=== PATIENT | male | born 1940 | race Caucasian/White ===

== ENCOUNTER 2020-01-01 08:14 | Outpatient (REF) | payer MEDICARE, OTHER, SELFPAY ==
[2020-01-01 11:17] LABS: Basophils Percent Auto 0.5 % (0-2); Eosinophils Absolute Auto 0.1 X10*3/uL (0.0-0.4); Eosinophils Percent Auto 1.4 % (0-4); Imm Gran Abs Auto 0.01 X10*3/uL (0.00-0.03); Imm Gran Pct Auto 0.1 % (0.0-0.4); Lymphocytes Absolute Auto 5.1 X10*3/uL (1.2-4.9); Lymphocytes Percent Auto 61.1 % (20-40); MANUAL DIFF FLAG SCAN; Mean Corpuscular HGB Conc 31.8 g/dl (31.0-36.0); Mean Corpuscular Hemoglobin 29.2 pg (27.0-33.0); Mean Corpuscular Volume 91.7 fL (80-98); Mean Platelet Volume 10.5 fL (9.4-12.4); Monocytes Absolute Auto 0.4 X10*3/uL (0.1-1.2); Monocytes Percent Auto 4.9 % (2-11); Neutrophils Absolute Auto 2.7 X10*3/uL (2.0-8.3); Platelet Count 142 X10*3/uL (160-400); SCAN SMEAR FLAG 1; White Blood Count 8.4 X10*3/uL (4.8-10.8)
[2020-01-01 11:36] LABS: Glucose Urine UA NEG (NEG); Leukocyte Esterase Urine NEG (NEG); Nitrite Urine NEG (NEG); PH 6.5 (5.0-8.0); Specific Gravity - Urine 1.015 (1.005-1.025); Urine Blood TRACE (NEG); Urine Ketones NEG (NEG); Urine Protein NEG (NEG-TRACE)
[2020-01-01 11:41] LABS: Estimated Average Glucose 114 mg/dL; Hemoglobin A1c % 5.6 %
[2020-01-01 11:57] LABS: SLIDE REVIEW VERIFIED
[2020-01-01 12:05] LABS: Appearance Urine CLEAR; Color Urine YELLOW
[2020-01-01 12:20] LABS: Alanine Aminotransferase 9 U/L (0-40); Albumin Level 4.1 g/dL (3.5-5.0); Alkaline Phosphatase 53 U/L (39-117); Anion Gap 11 (12-20); Aspartate Amino Transferase 14 U/L (5-37); Bilirubin Total 0.9 mg/dL (0.0-1.0); Blood Urea Nitrogen 22 mg/dL (9-16); Calcium 8.7 mg/dL (8.4-10.2); Carbon Dioxide 30 mmol/L (22-29); Chloride 102 mmol/L (96-108); Cholesterol 184 mg/dL; Estimated Glomerular Filt Rate > 60; Glucose Fasting 105 mg/dL (60-99); HDL Cholesterol 57 mg/dL; LDL Cholesterol Calculated 114 mg/dl; Potassium 4.4 mmol/l (3.3-5.1); Sodium 139 mmol/L (135-145); Total Protein 6.1 g/dL (6.5-8.0); Triglycerides 66 mg/dL
[2020-01-01 12:22] LABS: RBC Urine 0-2 /HPF (0); WBC Urine 0 /HPF (0-4)
== END 2020-01-01 08:15 | disposition home or self-care (01) ==
LOC: HO.HMGCLDS 08:14
PROVIDERS: PCP Internal Medicine; Visit Provider Internal Medicine
DX: I48.0 Paroxysmal atrial fibrillation (principal); I10 Essential (primary) hypertension; R73.03 Prediabetes
CPT/HCPCS: 36415; 80053; 80061; 81001; 81003; 83036; 84153; 85025

== ENCOUNTER 2020-12-11 06:55 | Outpatient (REF) | payer MEDICARE, OTHER, SELFPAY ==
[2020-12-11 11:20] LABS: MANUAL DIFF FLAG NO
[2020-12-11 11:27] LABS: Basophils Percent Auto 0.4 % (0-2); Eosinophils Absolute Auto 0.2 X10*3/uL (0.0-0.4); Eosinophils Percent Auto 2.9 % (0-4); Hematocrit 43.9 % (42-52); Hemoglobin 13.9 g/dl (14.0-18.0); Imm Gran Abs Auto 0.03 X10*3/uL (0.00-0.03); Imm Gran Pct Auto 0.4 % (0.0-0.4); Mean Corpuscular HGB Conc 31.7 g/dl (31.0-36.0); Mean Corpuscular Hemoglobin 28.5 pg (27.0-33.0); Mean Platelet Volume 10.8 fL (9.4-12.4); Monocytes Absolute Auto 0.5 X10*3/uL (0.1-1.2); Monocytes Percent Auto 6.8 % (2-11); Neutrophils Absolute Auto 2.1 X10*3/uL (2.0-8.3); Neutrophils Percent Auto 31.5 % (45-73); Platelet Count 129 X10*3/uL (160-400); Red Blood Count 4.88 X10*6/uL (4.60-5.80); Red Cell Distribution Width 13.8 % (11.0-16.0); White Blood Count 6.8 X10*3/uL (4.8-10.8)
[2020-12-11 11:47] LABS: Alanine Aminotransferase 19 U/L (0-40); Alkaline Phosphatase 60 U/L (39-117); Anion Gap 10 (12-20); Aspartate Amino Transferase 17 U/L (5-37); Bilirubin Total 1.2 mg/dL (0.0-1.0); Blood Urea Nitrogen 25 mg/dL (9-16); Carbon Dioxide 30 mmol/L (22-29); Chloride 106 mmol/L (96-108); Cholesterol 157 mg/dL; Estimated Glomerular Filt Rate 58; Glucose Fasting 102 mg/dL (60-99); HDL Cholesterol 46 mg/dL; LDL Cholesterol Calculated 101 mg/dl; Sodium 142 mmol/L (135-145); Triglycerides 54 mg/dL
[2020-12-11 12:08] LABS: Prostate Specific Antigen Scr 1.08 ng/mL (<0.05-4.0)
== END 2020-12-11 06:56 | disposition home or self-care (01) ==
LOC: HO.HMGCLDS 06:55
PROVIDERS: PCP Internal Medicine; Visit Provider Internal Medicine
DX: I48.91 Unspecified atrial fibrillation (principal); N40.0 Benign prostatic hyperplasia without lower urinary tract symptoms; E78.00 Pure hypercholesterolemia, unspecified; Z86.73 Personal history of transient ischemic attack (TIA), and cerebral infarction without residual deficits; Z12.5 Encounter for screening for malignant neoplasm of prostate
CPT/HCPCS: 36415; 80053; 80061; 84153; 85025

== ENCOUNTER 2021-12-09 08:23 | Outpatient (REF) | payer MEDICARE, OTHER, SELFPAY ==
[2021-12-09 11:22] LABS: Appearance Urine Clear; Color Urine Yellow; Glucose Urine UA Negative (Negative); Leukocyte Esterase Urine Negative (Negative); Nitrite Urine Negative (Negative); PH 6.5 (5.0-9.0); Urine Blood Negative (Negative); Urine Ketones Negative (Negative); Urine Protein Negative (Neg-Trace)
[2021-12-09 11:22] LABS: MANUAL DIFF FLAG NO
[2021-12-09 11:43] LABS: Basophils Percent Auto 0.6 % (0-2); Eosinophils Absolute Auto 0.2 X10*3/uL (0.0-0.4); Eosinophils Percent Auto 2.9 % (0-4); Estimated Average Glucose 114 mg/dL; Hematocrit 41.9 % (42.0-52.0); Hemoglobin 13.6 g/dl (14.0-18.0); Hemoglobin A1c % 5.6 %; Imm Gran Abs Auto 0.01 X10*3/uL (0.00-0.03); Imm Gran Pct Auto 0.1 % (0.0-0.4); Lymphocytes Absolute Auto 3.9 X10*3/uL (1.2-4.9); Lymphocytes Percent Auto 55.2 % (20-40); Mean Corpuscular HGB Conc 32.5 g/dl (31.0-36.0); Mean Corpuscular Hemoglobin 29.2 pg (27.0-33.0); Mean Corpuscular Volume 90.1 fL (80.0-98.0); Mean Platelet Volume 10.3 fL (9.4-12.4); Monocytes Absolute Auto 0.5 X10*3/uL (0.1-1.2); Monocytes Percent Auto 7.6 % (2-11); Neutrophils Absolute Auto 2.4 x10*3/uL (2.0-8.3); Neutrophils Percent Auto 33.6 % (45-73); Platelet Count 118 X10*3/uL (160-400); Red Blood Count 4.65 X10*6/uL (4.60-5.80); Red Cell Distribution Width 14.1 % (11.0-16.0)
[2021-12-09 11:49] LABS: Creatinine Urine 49.68 mg/dL; Microalbum/Creatinine Ratio Ur 30.1 ug/mg cr
[2021-12-09 12:12] LABS: Alanine Aminotransferase 14 U/L (0-40); Albumin Level 4.1 g/dL (3.5-5.0); Alkaline Phosphatase 46 U/L (39-117); Anion Gap 11 (12-20); Aspartate Amino Transferase 14 U/L (5-37); Bilirubin Total 0.9 mg/dL (0.0-1.0); Blood Urea Nitrogen 18 mg/dL (9-16); Calcium 9.3 mg/dL (8.4-10.2); Carbon Dioxide 30 mmol/L (22-29); Chloride 102 mmol/L (96-108); Cholesterol 166 mg/dL; Estimated Glomerular Filt Rate > 60; Glucose Fasting 108 mg/dL (60-99); HDL Cholesterol 60 mg/dL; LDL Cholesterol Calculated 95 mg/dl; Sodium 139 mmol/L (135-145); Triglycerides 55 mg/dL
[2021-12-09 12:35] LABS: Prostate Specific Antigen Scr 0.84 ng/mL (<0.05-4.0)
== END 2021-12-09 08:24 | disposition home or self-care (01) ==
LOC: HO.HMGCLDS 08:23
PROVIDERS: PCP Internal Medicine; Visit Provider Internal Medicine
DX: N40.0 Benign prostatic hyperplasia without lower urinary tract symptoms (principal); I48.91 Unspecified atrial fibrillation; R73.03 Prediabetes; C91.10 Chronic lymphocytic leukemia of B-cell type not having achieved remission; Z12.5 Encounter for screening for malignant neoplasm of prostate
CPT/HCPCS: 36415; 80053; 80061; 81003; 82043; 83036; 84153; 85025

== ENCOUNTER 2022-12-07 07:34 | Outpatient (REF) | payer MEDICARE, OTHER, SELFPAY ==
[2022-12-07 11:28] LABS: Appearance Urine Clear; Color Urine Yellow; Glucose Urine UA Negative (Negative); Leukocyte Esterase Urine Trace (Negative); Nitrite Urine Negative (Negative); UMIC TRIGGER UA YES; Urine Blood Negative (Negative); Urine Ketones Negative (Negative); Urine Protein Trace mg/dL (Neg-Trace)
[2022-12-07 11:33] LABS: MANUAL DIFF FLAG NO
[2022-12-07 11:36] LABS: Bacteria Urine None Seen (None Seen); Hyaline Casts Urine 0-2 /LPF (0-2); RBC Urine 0-2 /HPF (0-2); Squamous Epithelial Cell Urine 0-2 /HPF (0-2); WBC Urine 0-5 /HPF (0-5)
[2022-12-07 11:54] LABS: Basophils Percent Auto 0.4 % (0-2); Eosinophils Absolute Auto 0.2 X10*3/uL (0.0-0.4); Hematocrit 43.6 % (42.0-52.0); Imm Gran Abs Auto 0.01 X10*3/uL (0.00-0.03); Imm Gran Pct Auto 0.1 % (0.0-0.4); Lymphocytes Absolute Auto 4.3 X10*3/uL (1.2-4.9); Lymphocytes Percent Auto 54.5 % (20-40); Mean Corpuscular HGB Conc 32.1 g/dl (31.0-36.0); Mean Corpuscular Hemoglobin 29.5 pg (27.0-33.0); Monocytes Absolute Auto 0.4 X10*3/uL (0.1-1.2); Monocytes Percent Auto 5.2 % (2-11); Neutrophils Percent Auto 37.8 % (45-73); Platelet Count 128 X10*3/uL (160-400); Red Blood Count 4.74 X10*6/uL (4.60-5.80); Red Cell Distribution Width 13.6 % (11.0-16.0); White Blood Count 7.9 X10*3/uL (4.8-10.8)
[2022-12-07 12:19] LABS: Prostate Specific Antigen Scr 1.07 ng/mL (<0.05-4.0)
[2022-12-07 12:47] LABS: Alanine Aminotransferase 12 U/L (0-40); Albumin Level 3.9 g/dL (3.5-5.0); Alkaline Phosphatase 46 U/L (39-117); Anion Gap 10 (12-20); Aspartate Amino Transferase 15 U/L (5-37); Bilirubin Total 1.2 mg/dL (0.0-1.0); Blood Urea Nitrogen 18 mg/dL (9-16); Calcium 8.9 mg/dL (8.4-10.2); Carbon Dioxide 28 mmol/L (22-29); Chloride 105 mmol/L (96-108); Cholesterol 151 mg/dL (<200); Estimated Glomerular Filt Rate 57; Glucose Fasting 104 mg/dL (60-99); HDL Cholesterol 58 mg/dL (>40); Iron 71 mcg/dL (45-160); LDL Cholesterol Calculated 81 mg/dL (<100); Percent Iron Saturation 25 % (15-50); Potassium 4.2 mmol/L (3.3-5.1); Sodium 139 mmol/L (135-145); Total Iron Binding Capacity 283 mcg/dL (228-428); Total Protein 6.2 g/dL (6.5-8.0); Triglycerides 62 mg/dL (<150); Unsaturated Iron Binding 212 ug/dL
== END 2022-12-07 07:35 | disposition home or self-care (01) ==
LOC: HO.HMGCLDS 07:34
PROVIDERS: PCP Internal Medicine; Visit Provider Internal Medicine
DX: I48.0 Paroxysmal atrial fibrillation (principal); C91.10 Chronic lymphocytic leukemia of B-cell type not having achieved remission; N40.0 Benign prostatic hyperplasia without lower urinary tract symptoms; D64.9 Anemia, unspecified; Z12.5 Encounter for screening for malignant neoplasm of prostate
CPT/HCPCS: 36415; 80053; 80061; 81001; 83540; 84153; 85025

== ENCOUNTER 2023-12-08 06:49 | Outpatient (REF) | payer MEDICARE, OTHER, SELFPAY ==
[2023-12-08 09:28] LABS: B Type Natriuretic Peptide 212 pg/mL (<100)
[2023-12-08 10:05] LABS: MANUAL DIFF FLAG NO
[2023-12-08 10:09] LABS: Basophils Percent Auto 0.5 % (0-2); Eosinophils Absolute Auto 0.1 X10*3/uL (0.0-0.4); Eosinophils Percent Auto 1.8 % (0-4); Hematocrit 43.3 % (42.0-52.0); Hemoglobin 13.9 g/dl (14.0-18.0); Imm Gran Abs Auto 0.02 X10*3/uL (0.00-0.03); Imm Gran Pct Auto 0.3 % (0.0-0.4); Lymphocytes Absolute Auto 3.8 X10*3/uL (1.2-4.9); Lymphocytes Percent Auto 58.2 % (20-40); Mean Corpuscular HGB Conc 32.1 g/dl (31.0-36.0); Mean Corpuscular Hemoglobin 28.4 pg (27.0-33.0); Mean Corpuscular Volume 88.4 fL (80.0-98.0); Mean Platelet Volume 10.8 fL (9.4-12.4); Monocytes Absolute Auto 0.4 X10*3/uL (0.1-1.2); Monocytes Percent Auto 5.6 % (2-11); Neutrophils Absolute Auto 2.2 x10*3/uL (2.0-8.3); Neutrophils Percent Auto 33.6 % (45-73); Platelet Count 119 X10*3/uL (160-400); Red Cell Distribution Width 15.1 % (11.0-16.0); White Blood Count 6.6 X10*3/uL (4.8-10.8)
[2023-12-08 10:25] LABS: Estimated Average Glucose 120 mg/dL; Hemoglobin A1C 141.9395 umol/L; Hemoglobin A1c % 5.8 % (<6.0); Total Hemoglobin (HGBA1C) 3584.5705 umol/L
[2023-12-08 10:39] LABS: Prostate Specific Antigen 0.96 ng/mL (<0.05-4.0)
[2023-12-08 10:42] LABS: Alanine Aminotransferase 12 U/L (0-40); Alkaline Phosphatase 52 U/L (39-117); Anion Gap 12 (12-20); Aspartate Amino Transferase 15 U/L (5-37); Bilirubin Total 1.5 mg/dL (0.0-1.0); Blood Urea Nitrogen 20 mg/dL (9-16); Calcium 9.2 mg/dL (8.4-10.2); Carbon Dioxide 28 mmol/L (22-29); Chloride 107 mmol/L (96-108); Cholesterol 162 mg/dL (<200); Estimated Glomerular Filt Rate > 60; Glucose Fasting 101 mg/dL (60-99); HDL Cholesterol 54 mg/dL (>40); LDL Cholesterol Calculated 98 mg/dL (<100); Magnesium 2.1 mg/dL (1.6-2.6); Sodium 143 mmol/L (135-145); Total Protein 6.3 g/dL (6.5-8.0); Triglycerides 53 mg/dL (<150)
[2023-12-08 10:45] LABS: Free T4 (Free Thyroxine) 0.96 ng/dL (0.71-1.85); Thyroid Stimulating Hormone 0.77 uIU/mL (0.32-4.0)
== END 2023-12-08 06:50 | disposition home or self-care (01) ==
LOC: HO.HMGCLDS 06:49
PROVIDERS: PCP Internal Medicine; Visit Provider Internal Medicine
DX: I48.91 Unspecified atrial fibrillation (principal); I10 Essential (primary) hypertension; N40.0 Benign prostatic hyperplasia without lower urinary tract symptoms; R73.03 Prediabetes; C91.10 Chronic lymphocytic leukemia of B-cell type not having achieved remission; Z12.5 Encounter for screening for malignant neoplasm of prostate
CPT/HCPCS: 36415; 80053; 80061; 83036; 83735; 83880; 84153; 84439; 84443; 85025

== ENCOUNTER 2024-08-30 10:08 | Outpatient (AMB) | payer MEDICARE, OTHER, SELFPAY ==
--- NOTE | 2024-08-30 10:23 | A.OFFPC_ITS ---
Vital Signs 08/30/24 10:28 Height 6 ft 1 in Weight 182 lb BMI 24.0 BP 138/80 Blood Pressure Location Lt brachial Position Sitting Pulse 64 Pulse Source Pulse Oximeter Temp 97.5 F Temp Source Axillary Pulse Oximetry (%) 94 Oxygen Delivery Method Room Air Intake Visit Reasons: medication refill Timers Inspector Required: No Accompanied by: Self / Same As Patient Allergies penicillin V Allergy (Unknown, Verified 09/12/24 08:57) Unknown Penicillins (PENICILLINS) Allergy (Unknown, Verified 09/12/24 08:57) RASH Sulfa (Sulfonamide Antibiotics) Allergy (Unknown, Verified 09/12/24 08:57) Unknown Medication List - Last Reconciled 09/12/24 by Lasha Penn MD apixaban (Eliquis) 5 mg PO BID losartan 50 mg PO DAILY tamsulosin 0.4 mg PO BEDTIME Tobacco use date assessed: 08/30/24 Fall risk assessment: No Falls in past year Last assessed Fall Risk: 08/30/24 Dental Screening Dental Screen Date: 08/30/24 Did you have a dental visit in the last 12 months?: Yes Did you have a dental problem in the last 6 months where you did not have access to dental care?: No HPI medication refill HPI Details 84 yr old male presents to discuss his c hronic medical issues. Requests refill on a few meds. Requests blood work. [facility] Medical History (Updated 08/30/24 @ 10:50 by Lasha Penn MD) Essential hypertension Family History Mother No problems noted. Father No problems noted. Social History Housing: Condominium Patient Tobacco Use Status: Former Tobacco user e-Cigarette/Vaping Use: Former Use service: No Current occupational status: retired Cognitive needs: No Hearing needs: No Vision needs: Yes (rx glasses) Questionnaire PHQ-9 Over the last 2 weeks, how often have you been bothered by any of the following problems? 1. Little interest or pleasure in doing things: not at all 2. Feeling down, depressed, or hopeless: not at all 3. Trouble falling or staying asleep, or sleeping too much: not at all 4. Feeling tired or having little energy: not at all 5. Poor appetite or overeating: not at all 6. Feeling bad about yourself - or that you are a failure or have let yourself or your family down: not at all 7. Trouble concentrating on things, such as reading the newspaper or watching television: not at all 8. Moving or speaking so slowly that other people could have noticed. Or the opposite - being so fidgety or restless that you have been moving around a lot more than usual: not at all 9. Thoughts that you would be better off or of hurting yourself in some way: not at all Total score: 0 Depression Screening Interpretation: Negative Depression Screening Done: Yes Source: Developed by Drs. Pk Fernando, Rossy Guido, Cuong Jaeger and colleagues, with an educational scar from [employer] ([employer] Thrive Questionnaire Date Thrive assessed: 08/30/24 I am a: Patient Within the past 12 months, did the food you bought not last and you didn't have the money to get more?: Never true Within the past 12 months, did you worry whether your food would run out before you got money to buy more?: Never true Do you have trouble paying for medicines?: No Do you have trouble getting transportation to medical appointments?: No Do you have trouble paying your heating and electricity bill?: No Do you have trouble taking care of your child, family member or friend?: No Do you have trouble with day-to-day activities such as bathing, preparing meals, shopping, managing finances, etc.?: No Are you currently unemployed and looking for a job?: No Are you interested in more education?: No Currently or been in a relationship where the following occur: No concerns reported THRIVE Score: 0 AUDIT C Alcohol Use Questionnaire (AUDIT-C) 1. How often do you have a drink containing alcohol?: Never 3. How often do you have six or more drinks on one occasion?: Never Total Score: 0 SHERON-7 AMB Questionnaire SHERON-7 Date SHERON - 7 assessed: 08/30/24 Feeling nervous, anxious, or on edge: 0 = Not at all Not being able to stop or control worryin = Not at all Worrying too much about different things: 0 = Not at all Trouble relaxin = Not at all Being so restless that it is hard to sit still: 0 = Not at all Becoming easily annoyed or irritable: 0 = Not at all Feeling afraid as if something awful might happen: 0 = Not at all Total SHERON-7 score (0-4 normal; 5-9 mild; 10-14 moderate; 15-21 severe): 0 Source: Developed by Drs. Pk Fernando, Rossy Guido, Cuong Jaeger and colleagues, with an educational scar from [employer] ([employer] Physical exam (Primary Care) Vital Signs: Last Vital Signs Temp 97.5 F 08/30/24 10:28 Pulse 64 08/30/24 10:28 BP 138/80 08/30/24 10:28 Pulse Ox 94 08/30/24 10:28 Oxygen Delivery Method Room Air 08/30/24 10:28 Care Plan Goal for BP management: BP in range BMI result Body Mass Index 24.0 Tobacco/Smoking Status: Tobacco use Status Tobacco use date assessed 08/30/24 08/30/24 10:25 Patient Tobacco Use Status Former Tobacco user 08/30/24 10:35 e-Cigarette/Vaping Use Former Use 08/30/24 10:35 PHQ-9: PHQ-9 Score PHQ-9: Total score 0 08/30/24 10:25 Depression Screening Interpretation: Negative Thrive Assessment: Date of Thrive Assessment Date Thrive assessed 08/30/24 08/30/24 10:25 Currently or been in a relationship where the following occur: No concerns reported Const General: cooperative and healthy appearing Nutritional Appearance: well nourished Orientation/consciousness: patient oriented x3 Limitations: no limitations HENMT Head: Yes normal to inspection Eyes General: appearance normal, both eyes and all related structures Neck Neck: Yes normal visual inspection Chest Chest palpation & inspection: normal palpation of entire chest wall Resp Effort & Inspection: normal respiratory effort Neuro General: patient oriented x3 Coding Level of Care Code New Pt Level 4 (50048) Complex EM visit Add On G2211 Diagnoses Essential hypertension I10 Assessment & Plan Assessment & Plan (1) Essential hypertension: Code(s): I10 - Essential (primary) hypertension Category: Medical Plan: BP is in range continue current meds. BW ordered, will call with results Orders: Orders Liver Panel 11/06/24 I10 - Essential (primary) hypertension Complete Blood Count no Diff 11/06/24 I10 - Essential (primary) hypertension Basic Metabolic Panel 11/06/24 I10 - Essential (primary) hypertension Lipid Panel 11/06/24 I10 - Essential (primary) hypertension Prostate Specific Antigen Scr 11/06/24 I10 - Essential (primary) hypertension UA and rflx microscopic 11/06/24 I10 - Essential (primary) hypertension Medications: New apixaban (Eliquis) 5 mg PO BID 180 tabs 1RF tamsulosin 0.4 mg PO BEDTIME 90 caps 1RF losartan 50 mg PO DAILY 90 tabs 1RF
[2024-08-30 10:28] VITALS: BP 138/80; PULSE 64; TEMP 36.4; O2SAT 94; BMI 24.0
--- OUTSIDE RECORDS SUMMARY | 2024-08-30 11:40 | XMS_ITS | Patient Health Record ---
Author Organization [facility] Address [address] [place] [address] Care Team Providers Care Preparation Supervisor Freezing Name Role Phone Delvin Rendon MD Primary Care Provider UnavailDuane Mullen Jr Unavailable Allergies Allergen (clinical drug ingredient) Drug/Non Drug Allergy documented on EMR Reaction Allergy Type Onset Date Status Substance with sulfonamide structure and antibacterial mechanism of action (substance) Sulfa Antibiotics Unknown Drug Allergy Active Penicillin Unknown Drug Allergy Active Reason For Referral No Information Medications Medication SIG (Take, Route, Fr equency, Duration) Notes Start Date End Date Status Eliquis Active Metoprolol Succinate Active Tamsulosin HCl Activ e Aspirin 81 MG 1 tablet Orally Once a day Active Immunizations Vaccine Route Administration Date Status Comme nts Flu vaccine no Preserv 3 and > Unknown 11/22/2013 Admin istered Influenza Unknown 11/13/2020 Administered Problems Problem Type SNOMED Code ICD Code Onset Dates Problem Status W/U Status Risk Notes Problem 442168311 Colon cancer screening (V76.51) Active confirmed Problem 316195337 retirement current use of aspirin (V58.66) Active confirmed Problem 493166846 Gas bloat syndrome (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 [phone] [id number] MELARANEVIN BAPTISTE Self - patient is the insured Medical (General) History Medical History History ICD Code hypertension BPH chronic lymphocytic leukemia Atrial fibrillation, permanent, status p ost cardioversion and ablation. 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
== END 2024-08-30 10:50 | disposition home or self-care (01) ==
LOC: HO.HMCHD 10:08
PROVIDERS: PCP Internal Medicine; Visit Provider Internal Medicine
DX: I10 Essential (primary) hypertension (principal)

== ENCOUNTER → 2024-08-30 10:08 | Outpatient (BNVA) | payer MEDICARE, OTHER, SELFPAY | PROVIDERS: PCP Internal Medicine; Visit Provider Internal Medicine | DX: I10 Essential (primary) hypertension (principal); Z79.899 Other long term (current) drug therapy; Z87.891 Personal history of nicotine dependence | CPT/HCPCS: 99202 ==

== ENCOUNTER 2024-11-08 06:53 | Outpatient (REF) | payer MEDICARE, OTHER, SELFPAY ==
--- OUTSIDE RECORDS SUMMARY | 2019-04-14 08:00 | XMS_ITS | Continuity of Care Document ---
Author Organization [facility] Address [address] [place] [address] Phone Care Team Providers Care Veterans Service Representative Name Role Phone Provider, Referral Unavailable Unavailable Allergies, Adverse Reactions, Alerts Substance Reaction Status Criticality Sulfa (Sulfonamide Antibiotics) Active No Information Penicillins Active No Information Medications Medication Instructions Dosage Effective Dates (start - stop) Status Comments benazepril 5 mg tablet take 0.5 (2.5MG) by Oral route every day 2.5 MG - Active Procedures Procedure Date Therap 1/> Areas/15 Min; Exerc Therap 1/> Area/15 Min; Balnc/ 20 Man Ther Tech-1/> Regions-ea 1 20 Electrical Stimulation Therap 1/> Areas/15 Min; Exerc 20 Man Ther Tech-1/> Regions-ea 1 20 Electrical Stimulation Therap 1/> Areas/15 Min; Exerc 20 Therap 1/> Area/15 Min; Balnc/ 20 Man Ther Tech-1/> Regions-ea 1 20 Electrical Stimulation Therap 1/> Areas/15 Min; Exerc 20 Therap 1/> Area/15 Min; Balnc 20 Man Ther Tech-1/> Regions-ea 1 20 Electrical Stimulation Therap 1/> Areas/15 Min; Exerc Therap 1/> Area/15 Min; Balnc/ Man Ther Tech-1/> Regions-ea 1 20 Electrical Stimulation Therap 1/> Areas/15 Min; Exerc Therap 1/> Area/15 Min; Balnc/ Man Ther Tech-1/> Regions-ea 1 20 Electrical Stimulation PT EVAL LOW COMPLEX 20 MIN Therap 1/> Areas/15 Min; Exerc Man Ther Tech-1/> Regions-ea 1 20 Applic Modal 1/> Areas; Elec S Arthrocentesis/aspir/inj; Gemma 15 Arthrocentesis/aspir/inj; Inte 15 Offic/outpt E&m Estab Low-mod 5 Rad Exam Shoulder; Complt Mini 15 Methylprednisolone Acetate-40 5 Inj; 1/mx Trig Point 1/two Mus 14 Betamethasone Acetate-na Phos 4 Offic/outpt E&m Estab Low-mod 4 Applic Modal 1/> Areas; Tractn 14 Man Ther Tech-1/> Regions-ea 1 14 Applic Modal 1/> Areas; Ultras 14 Applic Modal 1/> Areas; Tractn 14 Man Ther Tech-1/> Regions-ea 1 14 Man Ther Tech-1/> Regions-ea 1 14 Man Ther Tech-1/> Regions-ea 1 14 Applic Modal 1/> Areas; Ultras 14 Phys Therap Eval Man Ther Tech-1/> Regions-ea 1 14 Mobility current status Mobility goal status Offic/outpt E&m Estab Mod-hi 2 14 Mri Spinal Wo Then W/contrast; 14 Carloz-base MR contrast NOS,1ml Prohance Ja Rad Exam Spine Lumbosacral; W/ 14 Offic/outpt E&m New Mod-hi 45 4 Pt visit doc using [facility] cer Some prescrib handwritten or OFFICE/OUTPATIENT VISIT, EST Mri Spinal Canal Thorac; Wo Co 09 Pt visit doc using [facility] cer Prescrip not gen at encounte Offic/outpt E&m Estab Low-mod 9 Pt visit doc using [facility] cer Prescription by E-Prescrib s Offic/outpt E&m New Mod Sever 9 Rad Exam Chest 2 Views Front & 09 Rad Exam Ribs Unilat; W/pa Varsha 09 Advance Directives Directive Yes / No Effective Date File Name No Information Encounters Encounter Description Practice Location Reason(s) For Visit Diagnoses Date Provider Providers Copied on Encounter [facility], [address] [place] [address], [id number], tel:[phone] No Information 0 0 Provider Referral. [address], [address], [place]. tel:[phone] [facility], [address] [place] [address], [id number], [place] tel:[phone] [facility] No Information 0 Stein PT Hillary. [address] [place] [address], [id number] , [place]. tel:[phone] Referring Provider: Stacey HORN, [address] [place], [address]. tel:[phone] [facility], [address] [place] [address], [id number], tel:[phone] [facility] No Information 0 Stein PT Hillary. [address] [place] [address], [id number] , [place]. tel:[phone] Referring Provider: Stacey HORN, [address], [place], [address]. tel:[phone] [facility], [address], [place], [place], [id number], [place] tel:[phone] [facility] No Information 0 Stein PT Hillary. [address], [place], [place], [id number] , [place]. tel:[phone] Referring Provider: Stacey HORN, [address], [place], [address]. tel:[phone] [facility], [address], [place], [place], [id number], [place] tel:[phone] [facility] No Information 0 Stein PT Hillary. [address], [place], [place], [id number] , [place]. tel:[phone] Referring Provider: Stacey HORN, [address], [place], [address]. tel:[phone] [facility], [address], [place], [place], [id number], [place] tel:[phone] [facility] No Information 0 Stein PT Hillary. [address], [place], [place], [id number] , [place]. tel:[phone] Referring Provider: Stacey HORN, [address], [place], [address]. tel:[phone] [facility], [address], [place], [place], [id number], [place] tel:[phone] [facility] No Information 0 Stein PT Hillary. [address], [place], [place], [id number] , [place]. tel:[phone] Referring Provider: Stacey HORN, [address], [place], [address]. tel:[phone] [facility], [address], [place], [place], [id number], [place] tel:[phone] [facility] No Information 0 Stein PT Hillary. [address] [facility], [address], [place], [place], [id number] , [place]. [phone] Referring Provider: Stacey HORN, [address], [place], [address]. tel:[phone] Offic/outpt E&m Estab Low-mod [facility], [address], [place], [place], [id number], [place] tel:[phone] [address] [place] [address] left shoulder pain (chief complaint) OVERWEIGHTHyp ertension, BenignShoulde r pain, leftOsteoarth ritis, shoulderPain in joint, upper arm 5 Carin Kirk. [address] [facility], [facility] [address], [place], [id number] , [place]. [phone] Referring Provider: Reagan Grimm, [address] [facility] [address], [place], [address] . tel:[phone] Offic/outpt E&m Estab Low-mod [facility], [address], [place], [place], [id number], [place] tel:[phone] [address] [place] [address] [facility] lumbar spine pain (chief complaint) LumbagoLumbag oSpinal enthesopathyL umbagoSpinal enthesopathyL umbar radiculopathy 4 Perry Cruz. [address] [facility], [facility] [address], [place], [id number] , [place]. tel:[phone] Referring Provider: Anthony Dawn, [address] [facility] [address], [place], [address] . tel:[phone] [facility], [address], [place], [place], [id number], tel:[phone] [facility] No Information 4 Dawkins Mayank. [address], [place], [place], [id number] , . tel: [phone] Referring Provider: Víctor Grimm, [address], [place], [address] . tel:[phone] [facility], [address] [facility], [place], [place], [id number], tel:[phone] [facility] No Information 4 Juancho Talley. [address] [facility] [address], [place], [place], [id number] , . tel: [phone] Referring Provider: Víctor Grimm, [address], [place], [address] . tel:[phone] [facility], [address] [facility], [place], [id number], tel:[phone] [facility] No Information 4 Juancho Tlaley. [address] [facility] [address], [place], [place], [id number] , . tel: [phone] Referring Provider: Víctor Grimm, [address], [place], [address] . tel:[phone] [facility], [address], [place], [place], [id number], tel:[phone] [facility] No Information 4 Juancho Talley. [address], [place], [place], [id number] , . tel: [phone] Referring Provider: Víctor Grimm, [address], [place], [address] . tel:[phone] [facility], [address] [address], [place], [id number], tel:[phone] [facility] DDD (degenerative disc disease), lumbosacralDi sc displacement, lumbarLumbago DDD (degenerative disc disease), lumbosacralDi sc displacement, lumbarLumbago DDD (degenerative disc disease), lumbosacralDi sc displacement, lumbarLumbago 4 Juancho Talley. [address], [place], [id number] , [place]. tel:[phone] Referring Provider: Víctor Grimm, [address], [place], [address] . tel:[phone] Offic/outpt E&m [facility] Mod-hi 2 [facility], [address] [address], [place], [place], [id number], tel:[phone] [facility] Sacral lesionDJD (degenerative joint disease), lumbarHNP (herniated nucleus pulposus), lumbar 4 Keith Renee. [address], [place], [place], [id number] , [place]. tel:[phone] Referring Provider: Víctor Grimm, [address], [place], [address] . tel:[phone] [facility], [address] [address], [place], [id number], tel:[phone] [facility] No Information 4 Keith Renee. [address], [place], [id number] , [place]. tel:[phone] Referring Provider: Víctor Grimm, [address], [place], [address] . tel:[phone] Offic/outpt E&m New Mod-hi 45 [facility], [address] [address], [place], [id number], [place] tel:[phone] [facility] DJD (degenerative joint disease), lumbarDJD (degenerative joint disease), lumbarLumbago 4 Keith Renee. [address], [facility] [address], [place], [id number] , [place]. tel:[phone] Referring Provider: Víctor Grimm, [address] [facility] [address], [place], [address] . tel:[phone] OFFICE/OUTPA TIENT VISIT, [facility], [address] [address], [place], [place], [id number], [place] tel:[phone] [facility] right rib pain (chief complaint) THORACIC DISC DISPLACMNT Mar-3 0-200 9 Carin Kirk. [address] [facility], [address], [id number] , [place]. tel:[phone] Referring Provider: Reagan Grimm, [address] [facility] [address] [facility], [place], [address] . tel:[phone] [facility] SANDY HORN, [address] [address], [place], [place], [id number], [place] tel:[phone] [facility] No Information Mar-2 3-200 9 Carin Kirk. [address] [facility], [address] [address], [place], [place], [id number] , [place]. tel:[phone] Referring Provider: Reagan Grimm, [address], [place], [address] . tel:[phone] Offic/outpt E&m Estab Low-mod [facility], [address] [facility] [address], [place], [id number], [place] tel:[phone] [facility] right rib pain (chief complaint) THORACIC DISC DISPLACMNT Mar-2 3-200 9 Sarain Reagan. [address] [facility], [facility] [address], [place], [place], [id number] , [place]. tel:[phone] Referring Provider: Reagan Grimm, [address] [facility], [place], [address] . tel:[phone] Offic/outpt E&m New Mod Sever [facility], [address], [place], [id number], [place] tel:[phone] [facility] right rib and sternal pain (chief complaint) THORACIC DISC DISPLACMNT 200 9 Carin Kirk. [address] [facility], [address], [place], [address] , [place]. tel:[phone] Referring Provider: Reagan Grimm, [address] [facility], [place], [address] . tel:[phone] Family History Family Member Type Diagnosis Age At Onset Problem (finding) Family history of Heart disease Problem (finding) Family history of malignant neoplasm of lung Problem (finding) Family history of malignant neoplasm of male breast Payers Payer name Insurance type Covered alliance party ID Authoriza tion(s) Medicare Part B [id number] [facility] [id number] Social History Type Description Quantity Date Captured Comments Sex Male Smoking Status No Information Chief Complaint And Reason For Visit No Information Reason For Referral Reason For Referral No Information Plan Of Treatment Date Type Action Status Goal Lifestyle education regardin g diet completed Referral Ordered: Rad Exam Shoulder; Complt Mini LT ordered History Of Present Illness Encounter Date Complaint History Of Prese nt Illness left shoulder pain Patient is he re for a new problem of left shoulder pain. Onset: on 03/21/2014. Severity level is 8. No injury. Patient is right handed. Patient denies any radicular pain. No numbness or tingling. Patient has not had any xrays or MRI. No previous injuries or surgeries. lumbar spine pain (comments) He presents to the office today to try a trigger point injection. He states the majority of his localized pain is a long his iliac crest on the left side. He does have some left leg radicular symptoms. lumbar spine pain The problem is worsening. It occurs persistently. Location of pain is lower back. Pain is radiated to the left leg. The patient describes the pain as an ache and sharp. Symptoms are aggravated by daily activities. Symptoms are relieved by rest. He states his back pain began about 51 years ago when he was in the . He states as years have gone by his pain has gotten worse and the episodes of pain have lasted longer. He did see Dr. Parker and had xrays and an MRI done. He has been treating with Dc for therapy. He does not feel the therapy has been helpful, in fact he feels the traction may have made him worse. He is here to see if a trigger point injection will offer him any relief. He has been taking Aleve for pain. He states in the past Aleve has worked for his pain, but this time it does not seem to be helping. He states the pain from his back radiates down his entire left leg into his foot. He denies any numbness or tingling. Functional Status Date Functional Assessmen t No Information Instructions Date Instruction Additional Infor mation I injected the left he AC joint with 40 mg of Depo-Medrol. 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 Patient was started on passive range of motion exercises. Follow up in 2 weeks for recheck. The possible need for an MRI scan was discussed. Related to Shoulder pain, left Lifestyle education regarding di et Related to Overweight Lifestyle education regarding diet (procedure) Related to Benign essential hypertension Assessments Type Assessment Date No Information Patient Care Teams Name Effective Dates (start - stop) Status Members No Information
--- OUTSIDE RECORDS SUMMARY | 2024-11-08 06:57 | XMS_ITS | Clinical Summary ---
Author Organization [facility] Address [address] [address] Phone Care Team Providers Care Mold Maker Apprentice Name Role Phone Delvin Rendon MD Primary Care Provider Social History Tobacco Use Types Packs/Day Years Used Date Smoking Tobacco: Never Assessed Education Answer Date Recorded Are you interested in more education? Not on mahnaz e 07/03/2022 Are you concerned about learning? Not on file 07/03/2022 No 07/03/2022 No 07/03/2022 Digital Access Answer Date Recorded No 08/01/2022 No 08/01/2022 No 08/01/2022 Reliable internet access at home? Not on file 08/01/2022 Device with a working camera? Not on file Sex and Gender Information Value Date Recorded Sex Assigned at Not on file Legal Sex Male 1:18 PM EDT Gender Identity Not on file Sexual Orientation Not on file Plan of Treatment Health Maintenance Due Date Last Done Comments Adult Td,Tdap Booster 1940 DEPRESSION SCREENING 1952 ZOSTER VACCINES (1 of 2) 02/22/1990 RSV VACCINE (1 - 1-dose 75+ series) 02/22/2015 PNEUMOCOCCAL VACCINES (50+ y ears) (2 of 2 - PPSV23) 11/28/2016 11/29/2015 COVID-19 VACCINE ( - 2023-2 5 season) 2023 12/07/2020 HEPATITIS A VACCINES Aged Out No long er eligible based on patient's age to complete this topic HIB VACCINES Aged Out No longer eligi ble based on patient's age to complete this topic MENINGOCOCCAL VACCINES (ACWY) Aged Out No longer eligible based on patient's age to complete this topic MENINGOCOCCAL VACCINES (B) Aged Out N o longer eligible based on patient's age to complete this topic Medical Devices Not on file Insurance MEDICARE PART A & B [employer] MED[employer] SUPPLEMENT MEDICARE PART A & B [employer] MED[employer]ARE SUPPLEMENT MEDICARE PART A & B [facility] MEDICARE SUPPLEMENT MEDICARE PART A & B [facility] [place] [address] MEDICARE PART A & B [facility] [id number] MEDICARE PART A & B [id number] [place] [address] EXT[employer] MEDICARE SUPPLEMENT MEDICARE PART A & B [facility] MEDICARE SUPPLEMENT MEDICARE PART A & B [employer] MED[employer]ARE SUPPLEMENT MEDICARE PART A & B [employer] MED[employer] [place] [id number] Care Teams Mold Maker Apprentice Relationship Specialty Start Date End Date Delvin Rendon MD [address] [place] [address] [place] [id number] PCP - General Internal Medicine 08/07/19 Additional Source Comments The information contained in this document represents components of the legal health record. It is not the complete legal health record.[facility]
--- OUTSIDE RECORDS SUMMARY | 2024-11-08 06:57 | XMS_ITS | Patient Health Record ---
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) Active confirmed Problem [id number] Colon cancer screening declined (Z53.20) Active confirmed Plan Of Treatment Future Test Test Name Order Date COLONOSCOPY 10/17/2014 Insurance Providers Payer Name Payer Address Payer Phone Subscriber Number Group Number Insured Name Patient Relationship to Insured Coverage Start Date Coverage End Date MEDICARE OF [place]OR [address] [facility] [place] [address] [id number] KELTON NEVIN Self - patient is the insured [facility] [employer] [address] [place] [phone] [id number] MELARANEVIN PENA Self - patient is the insured Medical (General) History Medical History History ICD Code hypertension BPH chronic lymphocytic leukemia Atrial fibrillation, permanent, status p ost cardioversion and ablation. 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
[2024-11-08 10:24] LABS: Hematocrit 43.9 % (42.0-52.0); Hemoglobin 14.3 g/dl (14.0-18.0); Mean Corpuscular HGB Conc 32.6 g/dl (31.0-36.0); Mean Corpuscular Hemoglobin 29.5 pg (27.0-33.0); Mean Corpuscular Volume 90.5 fL (80.0-98.0); NRBC Abs Auto 0.000 X10*3/uL (0.0-0.012); NRBC Pct Auto 0.0 /100WBC (0.0-0.2); Platelet Count 119 X10*3/uL (160-400); Red Blood Count 4.85 X10*6/uL (4.60-5.80); White Blood Count 7.3 X10*3/uL (4.8-10.8)
[2024-11-08 10:27] LABS: Appearance Urine Clear; Glucose Urine UA Negative (Negative); PH 6.0 (5.0-9.0); Specific Gravity - Urine 1.020 (1.005-1.025)
[2024-11-08 10:31] LABS: Alanine Aminotransferase 16 U/L (0-40); Albumin Level 4.2 g/dL (3.5-5.0); Alkaline Phosphatase 50 U/L (39-117); Anion Gap 10 (12-20); Aspartate Amino Transferase 24 U/L (5-37); Blood Urea Nitrogen 20 mg/dL (9-16); Calcium 9.2 mg/dL (8.4-10.2); Carbon Dioxide 30 mmol/L (22-29); Chloride 106 mmol/L (96-108); Cholesterol 160 mg/dL (<200); Estimated Glomerular Filt Rate 60; HDL Cholesterol 51 mg/dL (>40); Potassium 4.2 mmol/L (3.3-5.1); Sodium 142 mmol/L (135-145); Total Protein 6.2 g/dL (6.5-8.0); Triglycerides 58 mg/dL (<150)
== END 2024-11-08 06:54 | disposition home or self-care (01) ==
LOC: HO.HMGCLDS 06:53
PROVIDERS: PCP Student in an Organized Health Care Education/Training Program; Visit Provider Internal Medicine
DX: I10 Essential (primary) hypertension (principal); Z12.5 Encounter for screening for malignant neoplasm of prostate
CPT/HCPCS: 36415; 80048; 80061; 80076; 81003; 84153; 85027

== ENCOUNTER 2024-11-29 13:38 | Outpatient (AMB) | payer MEDICARE, OTHER, SELFPAY ==
[2024-11-29 14:04] VITALS: BP 140/82; PULSE 73; TEMP 36.5; O2SAT 99; BMI 24.0
--- NOTE | 2024-11-29 14:04 | A.OFFPC_ITS ---
Vital Signs 11/29/24 14:04 Height 6 ft 1 in Weight 182 lb BMI 24.0 BP 140/82 H Blood Pressure Location Rt brachial Position Sitting Pulse 73 Pulse Source Pulse Oximeter Temp 97.7 F Temp Source Temporal Artery Scan Pulse Oximetry (%) 99 Oxygen Delivery Method Room Air Intake Visit Reasons: Annual Foot Roentgenologist Required: No Accompanied by: Self / Same As Patient Allergies penicillin V Allergy (Unknown, Verified 09/12/24 08:57) Unknown Penicillins (PENICILLINS) Allergy (Unknown, Verified 09/12/24 08:57) RASH Sulfa (Sulfonamide Antibiotics) Allergy (Unknown, Verified 09/12/24 08:57) Unknown Tobacco use date assessed: 08/30/24 Fall risk assessment: No Falls in past year Last assessed Fall Risk: 11/29/24 Dental Screening Dental Screen Date: 11/29/24 Did you have a dental visit in the last 12 months?: Yes Did you have a dental problem in the last 6 months where you did not have access to dental care?: No HPI HPI Comments History of Present Illness Details The patient is an 84-year-old male presenting for a routine wellness visit. During the visit, the patient confirmed he has been receiving COVID booster vaccinations every six months, with the next scheduled for January. No complaints or acute issues were reported by the patient. He mentioned his chronic conditions, including atrial fibrillation, which is managed with Eliquis, and asymptomatic chronic lymphocytic leukemia, which is monitored annually. Hypertension is controlled with Losartan, and he takes Tamsulosin for prostate-related issues. Regarding hyperlipidemia, the patient was under the impression that his cholesterol was under control, but recent lab results showed LDL cholesterol at 98 mg/dL, which is higher than the desired guideline of below 70 mg/dL. He reported difficulty maintaining a healthy diet due to living alone and tending to consume convenience foods, acknowledging he should be more cognizant of his dietary choices. The patient plans to travel to [place] in about five weeks and expressed intent to return in June. Medical History: - Atrial Fibrillation - Chronic Lymphocytic Leukemia (asymptom atic) - Hyperlipidemia - Hypertension - Benign Prostatic Hyperplasia Surgical History: - Varicose vein surgery Medications: - Eliquis 5 mg, twice daily for atrial f ibrillation - Losartan 50 mg, once daily for hyperte nsion - Tamsulosin for benign prostatic hyperp lasia Diagnostic Results: - Labs: LDL cholesterol level at 98 mg/d L Social: - Lives alone; - Reports tendency to eat convenience fo ods and difficulty in cooking for oneself PFSH Medical History (Updated 11/29/24 @ 16:23 by Camron Kay MD) BPH (benign prostatic hyperplasia) CLL (chronic lymphocytic leukemia) Hyperlipidemia Atrial fibrillation Essential hypertension Family History Mother No problems noted. Father No problems noted. Social History Housing: Condominium Patient Tobacco Use Status: Former Tobacco user e-Cigarette/Vaping Use: Former Use service: No Current occupational status: retired Cognitive needs: No Hearing needs: No Vision needs: Yes (rx glasses) Questionnaire PHQ-9 Over the last 2 weeks, how often have you been bothered by any of the following problems? 1. Little interest or pleasure in doing things: not at all 2. Feeling down, depressed, or hopeless: not at all 3. Trouble falling or staying asleep, or sleeping too much: not at all 4. Feeling tired or having little energy: not at all 5. Poor appetite or overeating: not at all 6. Feeling bad about yourself - or that you are a failure or have let yourself o r your family down: not at all 7. Trouble concentrating on things, such as reading the newspaper or watching television: not at all 8. Moving or speaking so slowly that other people could have noticed. Or the opposite - being so fidgety or restless that you have been moving around a lot more than usual: not at all 9. Thoughts that you would be better off or of hurting yourself in some way: not at all Total score: 0 Source: Developed by Drs. Pk Fernando, Rossy Guido, Cuong Jaeger and colleagues, with an educational scar from [employer]. Thrive Questionnaire Date Thrive assessed: 11/29/24 I am a: Patient Within the past 12 months, did the food you bought not last and you didn't have the money to get more?: Never true Within the past 12 months, did you worry whether your food would run out before you got money to buy more?: Never true Do you have trouble paying for medicines?: No Do you have trouble getting transportation to medical appointments?: No Do you have trouble paying your heating and electricity bill?: No Do you have trouble taking care of your child, family member or friend?: No Do you have trouble with day-to-day activities such as bathing, preparing meals, shopping, managing finances, etc.?: No Are you currently unemployed and looking for a job?: No Are you interested in more education?: No THRIVE Score: 0 AUDIT C Alcohol Use Questionnaire (AUDIT-C) 1. How often do you have a drink containing alcohol?: Never 3. How often do you have six or more drinks on one occasion?: Never Total Score: 0 SHERON-7 AMB Questionnaire SHERON-7 Date SHERON - 7 assessed: 11/29/24 Feeling nervous, anxious, or on edge: 0 = Not at all Not being able to stop or control worryin = Not at all Worrying too much about different things: 0 = Not at all Trouble relaxin = Not at all Being so restless that it is hard to sit still: 0 = Not at all Becoming easily annoyed or irritable: 0 = Not at all Feeling afraid as if something awful might happen: 0 = Not at all Total SHERON-7 score (0-4 normal; 5-9 mild; 10-14 moderate; 15-21 severe): 0 Source: Developed by Drs. Pk Fernando, Rossy Guido, Cuong Jaeger and colleagues, with an educational scar from [employer]. Review of Systems Const Details: - Cardiovascular: Denies chest pain or palpitations - Respiratory: Denies respiratory complaints - Neurological: Denies headaches or vertigo - Musculoskeletal: Denies joint pain or stiffness All systems reviewed & are unremarkable except as reviewed in HPI and above Physical exam (Primary Care) Vital Signs: Last Vital Signs Temp 97.7 F 11/29/24 14:04 Pulse 73 11/29/24 14:04 BP 140/82 H 11/29/24 14:04 Pulse Ox 99 11/29/24 14:04 Oxygen Delivery Method Room Air 11/29/24 14:04 BMI result Body Mass Index 24.0 Tobacco/Smoking Status: Tobacco use Status Tobacco use date assessed 08/30/24 11/29/24 14:08 Patient Tobacco Use Status Former Tobacco user 11/29/24 14:08 e-Cigarette/Vaping Use Former Use 11/29/24 14:08 PHQ-9: PHQ-9 Score PHQ-9: Total score 0 11/29/24 14:08 Thrive Assessment: Date of Thrive Assessment Date Thrive assessed 11/29/24 11/29/24 14:08 Const Other: General: Alert and oriented, Well nourished, No acute distress. Eye: Pupils are equal, round and reactive to light, Intact accommodation, Extraocular movements are intact, Normal conjunctiva, Vision unchanged. HENT: Normocephalic, Atraumatic, Tympanic membranes are clear, Normal hearing, Oral mucosa is moist, No pharyngeal erythema, Ear canals patent. Respiratory: Lungs CTA bilaterally, No wheeze, Respirations are non-labored. Cardiovascular: Regular rate, Regular rhythm, S1 auscultated, S2 auscultated, No murmur, Good pulses equal in all extremities, Normal peripheral perfusion, No edema. Gastrointestinal: Soft, Non-tender, Non-distended, Normal bowel sounds, No organomegaly. Musculoskeletal: Normal range of motion, Normal strength, No tenderness, No swelling, No deformity, Normal gait. Integumentary: Warm, Dry, [place], Intact. Neurologic: Alert, Oriented, Normal sensory, Normal motor function, No focal defects, Cranial Nerves II-XII are grossly intact, Normal deep tendon reflexes. Psychiatric: Cooperative, Appropriate mood & affect, Normal judgment. Coding Level of Care Code Est Pt Level 4 (69098) Complex EM visit Add On G2211 Diagnoses Essential hypertension I10 Paroxysmal atrial fibrillation I48.0 Atrial fibrillation type: paroxysmal Other hyperlipidemia E78.49 Hyperlipidemia type: other hyperlipidemia CLL (chronic lymphocytic leukemia) C91.10 Benign prostatic hyperplasia without lower urinary tract symptoms N40.0 Lower urinary tract symptom presence: symptoms absent Assessment & Plan Assessment & Plan (1) Essential hypertension: Comment: - Continue Losartan 50 mg once daily; blood pressure is well controlled. Code(s): I10 - Essential (primary) hypertension Category: Medical (2) Atrial fibrillation: Comment: - Continue Eliquis 5 mg twice daily for anticoagulation. Code(s): I48.91 - Unspecified atrial fibrillation Category: Medical Qualifiers: Atrial fibrillation type: paroxysmal Qualified Code(s): I48.0 - Paroxysmal atrial fibrillation (3) Hyperlipidemia: Comment: - Recommend dietary modifications to reduce LDL cholesterol, focusing on reducing processed foods. - At this time will hold off on initiating statins, and will discuss at his next visit Code(s): E78.5 - Hyperlipidemia, unspecified Category: Medical Qualifiers: Hyperlipidemia type: other hyperlipidemia Qualified Code(s): E78.49 - Other hyperlipidemia (4) CLL (chronic lymphocytic leukemia): Comment: - Monitor with annual specialist appointments and blood work; no active treatment needed as patient remains asymptomatic & labs stable Code(s): C91.10 - Chronic lymphocytic leukemia of B-cell type not having achieved remission Category: Medical (5) BPH (benign prostatic hyperplasia): Comment: - Continue Tamsulosin as prescribed. Code(s): N40.0 - Benign prostatic hyperplasia without lower urinary tract symptoms Category: Medical Qualifiers: Lower urinary tract symptom presence: symptoms absent Qualified Code(s): N40.0 - Benign prostatic hyperplasia without lower urinary tract symptoms Plan: Health Maintenance: - COVID booster vaccinations scheduled every six months Patient was informed and verbally consented to the use of an ambient scribe for clinic note documentation during this visit. Plan I confirmed with the patient that receiving a COVID booster in January is recommended, given his age and medical history. We discussed the importance of maintaining LDL cholesterol levels below 70 mg/dL and suggested dietary changes, specifically reducing processed food intake. We reviewed and confirmed his current medication regimen. The importance of regular follow-ups with his specialist for chronic lymphocytic leukemia monitoring was emphasized. Plans for the next six-month follow-up were coordinated around his travel plans, ensuring he would be seen promptly after his return from [place]. Patient Instructions: - Continue taking all medications as prescribed. - Keep upcoming scheduled COVID booster vaccination. - Aim to reduce intake of processed foods to manage cholesterol levels. - Maintain follow-up appointment with your specialist for leukemia monitoring. - Schedule the next wellness visit upon return in July. - Contact the office if any new symptoms arise or there are concerns about your health.
--- OUTSIDE RECORDS SUMMARY | 2024-11-29 16:02 | XMS_ITS | Patient Health Record ---
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) Active confirmed Problem 99401687420526 Colon cancer screening declined (Z53.20) Active confirmed Plan Of Treatment Future Test Test Name Order Date COLONOSCOPY 10/17/2014 Insurance Providers Payer Name Payer Address Payer Phone Subscriber Number Group Number Insured Name Patient Relationship to Insured Coverage Start Date Coverage End Date MEDICARE OF AMOR [address] [facility] [place] [address] [id number] KELTON NEVIN Self - patient is the insured [facility] [employer] [address] [facility] [phone] [id number] MELARANEVIN PENA Self - patient is the insured Medical (General) History Medical History History ICD Code hypertension BPH chronic lymphocytic leukemia Atrial fibrillation, permanent, status p ost cardioversion and ablation. 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
--- OUTSIDE RECORDS SUMMARY | 2024-11-29 16:02 | XMS_ITS | Clinical Summary ---
Author Organization [facility] Address [address] [address] Phone Care Team Providers Care Burial Needs Salesperson Name Role Phone Delvin Rendon MD Primary [...] 1-dose 75+ series) 02/22/2015 PNEUMOCOCCAL VACCINES (50+ years) (2 of 2 - PPSV23) 11/28/2016 11/29/2015 INFLUENZA VACCINE (#1) 2024 9, 10/26/2017, 11/13/2016, Additional history exists COVID-19 VACCINE (2 - season) 2024 12/07/2020 HEPATITIS A VACCINES Aged Out No [...] file Insurance MEDICARE PART A & B [facility] [employer] MEDICARE SUPPLEMENT MEDICARE PART A & B [facility] MEDICARE SUPPLEMENT MEDICARE PART A & B [facility] MEDICARE SUPPLEMENT MEDICARE PART A & B [facility] MEDICARE SUPPLEMENT MEDICARE PART A & B [facility] MEDICARE SUPPLEMENT MEDICARE PART A & B [employer] MEDICARE SUPPLEMENT MEDICARE PART A & B [employer] MEDICARE SUPPLEMENT MEDICARE PART A & B [employer] MEDICARE SUPPLEMENT MEDICARE PART A & B [employer] MED[employer]ARE [place] [phone] Care Teams Burial Needs Salesperson Relationship Specialty Start Date End Date Delvin Rendon MD [address] [place] [address] [place] [phone] PCP - General Internal Medicine 08/07/19 Additional Source Comments The information contained in this document represents components of the legal health record. It is not the complete legal health record.[facility]
== END 2024-11-29 14:21 | disposition home or self-care (01) ==
PROVIDERS: PCP Student in an Organized Health Care Education/Training Program; Visit Provider Student in an Organized Health Care Education/Training Program
DX: I10 Essential (primary) hypertension (principal); I48.0 Paroxysmal atrial fibrillation; E78.49 Other hyperlipidemia; C91.10 Chronic lymphocytic leukemia of B-cell type not having achieved remission; N40.0 Benign prostatic hyperplasia without lower urinary tract symptoms

== ENCOUNTER → 2024-11-29 13:38 | Outpatient (BNVA) | payer MEDICARE, OTHER, SELFPAY | PROVIDERS: PCP Internal Medicine; Visit Provider Student in an Organized Health Care Education/Training Program | DX: I10 Essential (primary) hypertension (principal); I48.0 Paroxysmal atrial fibrillation; E78.49 Other hyperlipidemia; C91.10 Chronic lymphocytic leukemia of B-cell type not having achieved remission; N40.0 Benign prostatic hyperplasia without lower urinary tract symptoms; Z79.01 Long term (current) use of anticoagulants; Z79.899 Other long term (current) drug therapy; Z13.39 Encounter for screening examination for other mental health and behavioral disorders; Z13.30 Encounter for screening examination for mental health and behavioral disorders, unspecified | CPT/HCPCS: 96127; 99212 ==